=== PATIENT | male | born 1960 | race Caucasian/White ===

== ENCOUNTER 2018-06-19 00:22 | Inpatient (IN) ==
[2018-06-19] MEDS ORDERED: ASPIRIN 325 MG TABLET PO STA (00:57)
[2018-06-19] MEDS ORDERED: ALUM/MAG/SIMETH/LIDO VISC 1:1 30 ML BOTTLE PO STA (00:57)
[2018-06-19] MEDS ORDERED: NITROGLYCERIN 2% OINT 1 INCH/GM PACK TOP STA (00:57)
[2018-06-19] MEDS ORDERED: MORPHINE 4 MG/1 ML VIAL IV STA (01:40)
[2018-06-19] MEDS ORDERED: ONDANSETRON 4 MG/2 ML VIAL IV STA (01:48)
[2018-06-19 01:55] LABS: Basophils % 0.3 % (0.0-0.8); Eosinophils % 0.1 % (0.00-10.9); Hematocrit 46.1 VOL% (42.0-52.0); Hemoglobin 14.7 GM/DL (14.0-18.0); Immature Granulocytes % 0.4 %; Immature Granulocytes Absolute 0.05 #; Lymphocytes # 0.7 10*3/uL (1.4-4.0); Lymphocytes % 5.6 % (21.2-54.2); Mean Corpuscular HGB Conc 31.9 GM/DL (32-36); Mean Corpuscular Hemoglobin 28 PG (27-34); Mean Corpuscular Volume 88.5 FL (87-102); Mean Platelet Volume 9.7 FL (9.6-12.0); Monocytes # 0.5 10*3/uL (0.11-0.8); Neutrophils # 11.7 10*3/uL (1.4-7.4); Neutrophils % 89.6 % (38.7-73.9); Platelet Count 260 T/CUMM (130-400); Red Blood Count 5.21 MC/CUMM (3.8-5.5); Red Cell Distribution Width 12.7 % (9.3-17.3)
[2018-06-19] MEDS ORDERED: HYDROmorphone 2 MG/1 ML VIAL IM STA (01:58)
[2018-06-19] MEDS ORDERED: PROMETHAZINE 25 MG/1 ML VIAL IM STA (01:59)
[2018-06-19 02:31] LABS: Albumin 4.1 G/DL (3.4-5.0); Bilirubin,Total 0.6 MG/DL (0.2-1.0); Calcium 9.1 MG/DL (8.5-10.1); Osmolality,Calculated 286.8 MOS/KG (273-304); Potassium 4.1 MMOL/L (3.5-5.1); Total Protein 8.5 G/DL (6.4-8.3)
[2018-06-19] MEDS ORDERED: KETOROLAC 15 MG/1 ML VIAL IV PRN (04:15)
[2018-06-19] MEDS ORDERED: ONDANSETRON 4 MG/2 ML VIAL IV PRN ×2 (04:15→12:16)
[2018-06-19] MEDS ORDERED: HYDROmorphone 2 MG/1 ML VIAL IV STA (04:42)
[2018-06-19] MEDS: DEXTROSE 5% LACTATED RINGERS 1,000 ML IV SCH ×3 (04:53→20:52)
[2018-06-19] MEDS ORDERED: HYDROmorphone 2 MG/1 ML VIAL IV PRN ×2 (12:15)
[2018-06-19] MEDS ORDERED: cefOXitin 2,000 MG in SYRINGE 1 EACH IV ONE ×2 (12:15→13:00)
[2018-06-19] MEDS ORDERED: GLUCAGON 1 MG VIAL IM PRN (12:17)
[2018-06-19] MEDS ORDERED: DEXTROSE 50% 25 GM/50 ML SYRINGE IV PRN (12:17)
[2018-06-19] MEDS ORDERED: LIDOCAINE 1%/EPI INJ 20 ML VIAL ONE (12:33)
[2018-06-19] MEDS: PANTOPRAZOLE 40 MG VIAL IV SCH (12:43)
[2018-06-19] MEDS ORDERED: INSULIN LISPRO 100 UNIT/ML ONE (12:57)
[2018-06-19] MEDS: INSULIN LISPRO 100 UNIT/ML SUBCUT SCH ×2 (12:58→17:41)
[2018-06-19] MEDS ORDERED: PROPOFOL 200 MG/20 ML VIAL IV ONE (14:26)
[2018-06-19] MEDS ORDERED: ONDANSETRON 4 MG/2 ML VIAL ONE (14:27)
[2018-06-19] MEDS ORDERED: KETOROLAC 30 MG/1 ML VIAL ONE (14:27)
[2018-06-19] MEDS ORDERED: GLYCOPYRROLATE 0.4 MG/2 ML VIAL ONE (14:27)
[2018-06-19] MEDS ORDERED: NEOSTIGMINE 10 MG/10 ML VIAL ONE (14:27)
[2018-06-19] MEDS ORDERED: ROCURONIUM 100 MG/10 ML VIAL IV ONE (14:27)
[2018-06-19] MEDS ORDERED: SEVOFLURANE 1 UNIT/15 MINUTE INH ONE (14:27)
[2018-06-19] MEDS ORDERED: fentaNYL 100 MCG/2 ML VIAL ONE (14:27)
[2018-06-19] MEDS ORDERED: KETOROLAC 30 MG/1 ML VIAL IV ONE (19:35)
[2018-06-19] MEDS: ACETAMINOPHEN 325 MG TABLET PO PRN (19:48)
[2018-06-20] MEDS: ACETAMINOPHEN 325 MG TABLET PO PRN ×2 (03:24→10:06)
[2018-06-20] MEDS: DEXTROSE 5% LACTATED RINGERS 1,000 ML IV SCH (04:55)
[2018-06-20 05:29] LABS: Basophils % 0.2 % (0.0-0.8); Hematocrit 39.4 VOL% (42.0-52.0); Hemoglobin 12.6 GM/DL (14.0-18.0); Immature Granulocytes % 0.5 %; Immature Granulocytes Absolute 0.06 #; Lymphocytes # 0.7 10*3/uL (1.4-4.0); Lymphocytes % 5.7 % (21.2-54.2); Mean Corpuscular Hemoglobin 29 PG (27-34); Mean Corpuscular Volume 89.1 FL (87-102); Mean Platelet Volume 10.8 FL (9.6-12.0); Monocytes # 0.8 10*3/uL (0.11-0.8); Monocytes % 5.8 % (1.7-12.7); Neutrophils # 11.4 10*3/uL (1.4-7.4); Neutrophils % 87.8 % (38.7-73.9); Platelet Count 206 T/CUMM (130-400); Red Blood Count 4.42 MC/CUMM (3.8-5.5); Red Cell Distribution Width 13.2 % (9.3-17.3); White Blood Count 12.9 T/CUMM (4-12)
[2018-06-20 05:50] LABS: Band Neutrophils 11 % (0-10); Hypochromasia 1+; Lymphocytes 5 % (20-55); Segmented Neutrophils 79 % (50-85); Total Cells Counted 100
[2018-06-20 05:51] LABS: Microcytosis 1+; Platelet Estimate Normal
[2018-06-20 05:55] LABS: Albumin 2.6 G/DL (3.4-5.0); Bilirubin,Total 1.7 MG/DL (0.2-1.0); Osmolality,Calculated 293.8 MOS/KG (273-304); Potassium 3.8 MMOL/L (3.5-5.1); Total Protein 6.3 G/DL (6.4-8.3)
[2018-06-20] MEDS ORDERED: MAGNESIUM SULF RIDER 4 GM in PREMIX 1 EACH IV PRN (08:38)
[2018-06-20] MEDS ORDERED: MAGNESIUM SULF RIDER 2 GM in PREMIX 1 EACH IV PRN (08:38)
[2018-06-20] MEDS: INSULIN LISPRO 100 UNIT/ML SUBCUT SCH ×7 (08:48→22:55)
[2018-06-20] MEDS: PANTOPRAZOLE 40 MG VIAL IV SCH (09:57)
[2018-06-20] MEDS: metFORMIN 500 MG TABLET PO SCH (09:57)
[2018-06-20] MEDS ORDERED: DEXTROSE 50% 25 GM/50 ML VIAL IV PRN (15:30)
[2018-06-20] MEDS ORDERED: GLUCAGON 1 MG VIAL IM PRN (15:30)
[2018-06-21] MEDS: INSULIN LISPRO 100 UNIT/ML SUBCUT SCH ×6 (02:50→21:04)
[2018-06-21 05:56] LABS: Albumin 2.1 G/DL (3.4-5.0); Bilirubin,Total 1.2 MG/DL (0.2-1.0); Calcium 8.3 MG/DL (8.5-10.1); Potassium 3.3 MMOL/L (3.5-5.1); Total Protein 6.7 G/DL (6.4-8.3)
[2018-06-21] MEDS: metFORMIN 500 MG TABLET PO SCH (08:27)
[2018-06-21] MEDS: PANTOPRAZOLE 40 MG VIAL IV SCH (08:27)
[2018-06-21] MEDS ORDERED: LACTATED RINGERS 500 ML IV ONE (13:06)
[2018-06-21] MEDS ORDERED: POTASSIUM CHLORIDE 20 MEQ TABLET PO PRN (13:09)
[2018-06-21] MEDS: PIPERACILLIN/TAZOBACTAM 3,375 MG in SODIUM CHLORIDE 0.9% 100 ML IV SCH ×2 (13:50→21:04)
[2018-06-21] MEDS: LACTATED RINGERS 1,000 ML IV SCH (16:50)
[2018-06-21 17:34] LABS: Troponin I < 0.015 NG/ML (0.00-0.045)
[2018-06-22] MEDS: INSULIN LISPRO 100 UNIT/ML SUBCUT SCH ×4 (02:53→16:00)
[2018-06-22] MEDS: LACTATED RINGERS 1,000 ML IV SCH ×2 (02:53→11:12)
[2018-06-22 04:22] LABS: Basophils % 0.3 % (0.0-0.8); Eosinophils # 0.2 10*3/uL (0.0-0.87); Eosinophils % 1.9 % (0.00-10.9); Hematocrit 38.3 VOL% (42.0-52.0); Hemoglobin 11.9 GM/DL (14.0-18.0); Immature Granulocytes % 0.8 %; Immature Granulocytes Absolute 0.09 #; Lymphocytes # 0.9 10*3/uL (1.4-4.0); Lymphocytes % 8.4 % (21.2-54.2); Mean Corpuscular HGB Conc 31.1 GM/DL (32-36); Mean Corpuscular Hemoglobin 28 PG (27-34); Mean Corpuscular Volume 90.3 FL (87-102); Mean Platelet Volume 9.9 FL (9.6-12.0); Monocytes # 0.9 10*3/uL (0.11-0.8); Monocytes % 8.5 % (1.7-12.7); Neutrophils # 8.7 10*3/uL (1.4-7.4); Neutrophils % 80.1 % (38.7-73.9); Platelet Count 219 T/CUMM (130-400); Red Blood Count 4.24 MC/CUMM (3.8-5.5); Red Cell Distribution Width 13.1 % (9.3-17.3); White Blood Count 10.9 T/CUMM (4-12)
[2018-06-22 04:41] LABS: Albumin 1.9 G/DL (3.4-5.0); Bilirubin,Total 1.5 MG/DL (0.2-1.0); Calcium 8.2 MG/DL (8.5-10.1); Osmolality,Calculated 278.8 MOS/KG (273-304); Potassium 3.6 MMOL/L (3.5-5.1); Total Protein 6.4 G/DL (6.4-8.3)
[2018-06-22] MEDS: PIPERACILLIN/TAZOBACTAM 3,375 MG in SODIUM CHLORIDE 0.9% 100 ML IV SCH ×2 (05:05→16:00)
[2018-06-22] MEDS: PANTOPRAZOLE 40 MG VIAL IV SCH (08:01)
[2018-06-22] MEDS: metFORMIN 500 MG TABLET PO SCH (08:01)
[2018-06-22] MEDS: ACETAMINOPHEN 325 MG TABLET PO PRN (08:08)
[2018-06-22 08:10] LABS: Thyroid Stimulating Hormone 1.88 uIU/ml (0.358-3.74)
[2018-06-22 11:19] VITALS: BP 144/80
[2018-06-22] MEDS ORDERED: CARVEDILOL 3.125 MG TABLET PO SCH (13:00)
== END 2018-06-22 16:25 | disposition home or self-care (01) | DRG 419 ==
LOC: N.ED 00:22 → N.3E 00:22
PROVIDERS: ADMIT Surgery; ATTEND Surgery
PROC: LAPCHOL (2018-06-19 13:12)

== ENCOUNTER 2018-07-23 17:36 | Inpatient (IN) ==
[2018-07-23] MEDS ORDERED: ONDANSETRON 4 MG/2 ML VIAL IV ONE (19:24)
[2018-07-23] MEDS ORDERED: SODIUM CHLORIDE 0.9% 1,000 ML IV STA ×2 (19:24→19:54)
[2018-07-23 19:52] LABS: Basophils # 0.1 10*3/uL (0.0-0.2); Basophils % 0.5 % (0.0-0.8); Eosinophils # 0.1 10*3/uL (0.0-0.87); Eosinophils % 0.9 % (0.00-10.9); Hematocrit 42.4 VOL% (42.0-52.0); Hemoglobin 13.5 GM/DL (14.0-18.0); Immature Granulocytes % 0.3 %; Immature Granulocytes Absolute 0.03 #; Lymphocytes # 2.3 10*3/uL (1.4-4.0); Lymphocytes % 23.1 % (21.2-54.2); Mean Corpuscular HGB Conc 31.8 GM/DL (32-36); Mean Corpuscular Volume 84.8 FL (87-102); Mean Platelet Volume 9.6 FL (9.6-12.0); Monocytes % 8.5 % (1.7-12.7); Neutrophils % 66.7 % (38.7-73.9); Platelet Count 432 T/CUMM (130-400); Red Cell Distribution Width 12.9 % (9.3-17.3); White Blood Count 10.1 T/CUMM (4-12)
[2018-07-23] MEDS ORDERED: INSULIN REGULAR 100 UNIT/ML IV STA (19:54)
[2018-07-23 20:11] LABS: Troponin I < 0.015 NG/ML (0.00-0.045)
[2018-07-23 20:14] LABS: Albumin 2.8 G/DL (3.4-5.0); Bilirubin,Total 0.6 MG/DL (0.2-1.0); Calcium 9.6 MG/DL (8.5-10.1); Osmolality,Calculated 278.5 MOS/KG (273-304); Total Protein 8.8 G/DL (6.4-8.3)
[2018-07-23] MEDS ORDERED: PROMETHAZINE INJ 25 MG in SODIUM CHLORIDE 0.9% 50 ML IV STA (20:23)
[2018-07-23] MEDS ORDERED: PROMETHAZINE 25 MG/1 ML VIAL ONE (20:25)
[2018-07-23] MEDS ORDERED: PIPERACILLIN/TAZOBACTAM 3,375 MG in SODIUM CHLORIDE 0.9% 100 ML IV STA (21:23)
[2018-07-23] MEDS ORDERED: ONDANSETRON 4 MG/2 ML VIAL IV PRN (21:29)
[2018-07-23] MEDS ORDERED: ACETAMINOPHEN 325 MG TABLET PO PRN (21:29)
[2018-07-23] MEDS ORDERED: BISACODYL 5 MG TABLET PO PRN (21:29)
[2018-07-23] MEDS ORDERED: GLUCAGON 1 MG VIAL IM PRN (21:31)
[2018-07-23] MEDS ORDERED: DEXTROSE 50% 25 GM/50 ML SYRINGE IV PRN (21:31)
[2018-07-23 22:38] LABS: Apearance,Urine CLEAR (Clear); Bilirubin,Urine Negative (Negative); Blood, Urine Negative (Negative); Glucose,Urine (UA) >=500 mg/dL (Negative); Ketones,Urine Negative (Negative); Mucus,Urine Occasional /LPF (Occasional); Nitrite,Urine Negative (Negative); Protein,Urine Negative; RBC,Urine 1 /HPF (0-4); Squamous Epithelial Cell,Urine Occasional /HPF (0-10); Urine Color Yellow (Yellow); Urine Specific Gravity > 1.060 (1.001-1.035); Urine Urobilinogen < 2.0 EU/DL (0.2-1.0)
[2018-07-24] MEDS ORDERED: PNEUMOCOCCAL VACCINE (23 VALENT) 0.5 ML VIAL IM ONE (00:05)
[2018-07-24] MEDS: DEXTROSE 5% LACTATED RINGERS 1,000 ML IV SCH ×3 (00:10→20:45)
[2018-07-24] MEDS: PIPERACILLIN/TAZOBACTAM 3,375 MG in SODIUM CHLORIDE 0.9% 100 ML IV SCH ×4 (00:40→23:30)
[2018-07-24] MEDS: INSULIN REGULAR 100 UNIT/ML SUBCUT SCH ×5 (00:56→23:55)
[2018-07-24 06:08] LABS: Basophils # 0.1 10*3/uL (0.0-0.2); Basophils % 0.7 % (0.0-0.8); Eosinophils # 0.2 10*3/uL (0.0-0.87); Eosinophils % 2.3 % (0.00-10.9); Immature Granulocytes % 0.5 %; Immature Granulocytes Absolute 0.04 #; Lymphocytes # 2.1 10*3/uL (1.4-4.0); Lymphocytes % 24.2 % (21.2-54.2); Mean Corpuscular HGB Conc 31.1 GM/DL (32-36); Mean Corpuscular Volume 85.7 FL (87-102); Mean Platelet Volume 9.3 FL (9.6-12.0); Monocytes % 8.8 % (1.7-12.7); Neutrophils % 63.5 % (38.7-73.9); Platelet Count 380 T/CUMM (130-400); Red Cell Distribution Width 12.8 % (9.3-17.3); White Blood Count 8.7 T/CUMM (4-12)
[2018-07-24 06:14] LABS: Albumin 2.2 G/DL (3.4-5.0); Bilirubin,Total 0.6 MG/DL (0.2-1.0); Calcium 8.5 MG/DL (8.5-10.1); Osmolality,Calculated 276.8 MOS/KG (273-304); Total Protein 6.7 G/DL (6.4-8.3)
[2018-07-24 06:24] LABS: Hemoglobin 11.2 GM/DL (14.0-18.0)
[2018-07-24] MEDS: PANTOPRAZOLE 40 MG VIAL IV SCH (09:12)
[2018-07-24] MEDS ORDERED: DIAZEPAM 5 MG TABLET PO ONE (09:57)
[2018-07-24] MEDS ORDERED: MIDAZOLAM 2 MG/2 ML VIAL IV ONE (09:57)
[2018-07-24] MEDS ORDERED: fentaNYL 100 MCG/2 ML VIAL IV ONE (09:57)
[2018-07-24] MEDS ORDERED: fentaNYL 100 MCG/2 ML VIAL ONE (14:58)
[2018-07-24] MEDS ORDERED: MIDAZOLAM 2 MG/2 ML VIAL ONE (14:59)
[2018-07-24] MEDS: ZINC OXIDE PASTE 113 GM TUBE TOP SCH ×2 (19:29→21:17)
[2018-07-24] MEDS: CARVEDILOL 3.125 MG TABLET PO SCH (20:41)
[2018-07-25] MEDS: INSULIN REGULAR 100 UNIT/ML SUBCUT SCH ×3 (05:55→19:00)
[2018-07-25] MEDS: PIPERACILLIN/TAZOBACTAM 3,375 MG in SODIUM CHLORIDE 0.9% 100 ML IV SCH ×2 (08:17→16:30)
[2018-07-25] MEDS: COLLAGENASE OINT 30 GM TUBE TOP SCH (08:18)
[2018-07-25] MEDS: PANTOPRAZOLE 40 MG VIAL IV SCH (08:18)
[2018-07-25] MEDS: CARVEDILOL 3.125 MG TABLET PO SCH ×2 (08:19→20:57)
[2018-07-25] MEDS: DEXTROSE 5% LACTATED RINGERS 1,000 ML IV SCH ×2 (14:50→15:22)
[2018-07-25] MEDS: ZINC OXIDE PASTE 113 GM TUBE TOP SCH ×2 (19:05→20:57)
[2018-07-26] MEDS: INSULIN REGULAR 100 UNIT/ML SUBCUT SCH ×4 (00:36→18:58)
[2018-07-26] MEDS: PIPERACILLIN/TAZOBACTAM 3,375 MG in SODIUM CHLORIDE 0.9% 100 ML IV SCH ×3 (02:03→17:35)
[2018-07-26 04:49] LABS: Basophils % 0.4 % (0.0-0.8); Eosinophils # 0.2 10*3/uL (0.0-0.87); Eosinophils % 1.7 % (0.00-10.9); Hematocrit 37.6 VOL% (42.0-52.0); Hemoglobin 11.7 GM/DL (14.0-18.0); Immature Granulocytes % 0.9 %; Immature Granulocytes Absolute 0.08 #; Lymphocytes # 1.9 10*3/uL (1.4-4.0); Lymphocytes % 21.1 % (21.2-54.2); Mean Corpuscular HGB Conc 31.1 GM/DL (32-36); Mean Corpuscular Volume 85.5 FL (87-102); Mean Platelet Volume 9.3 FL (9.6-12.0); Monocytes % 10.1 % (1.7-12.7); Neutrophils % 65.8 % (38.7-73.9); Platelet Count 372 T/CUMM (130-400); Red Cell Distribution Width 12.8 % (9.3-17.3); White Blood Count 9.2 T/CUMM (4-12)
[2018-07-26 05:09] LABS: Albumin 2.1 G/DL (3.4-5.0); Bilirubin,Total 0.8 MG/DL (0.2-1.0); Calcium 8.6 MG/DL (8.5-10.1); Total Protein 6.8 G/DL (6.4-8.3)
[2018-07-26] MEDS: DEXTROSE 5% LACTATED RINGERS 1,000 ML IV SCH ×2 (09:29→18:37)
[2018-07-26] MEDS: CARVEDILOL 3.125 MG TABLET PO SCH ×2 (09:31→21:49)
[2018-07-26] MEDS: PANTOPRAZOLE 40 MG VIAL IV SCH (09:31)
[2018-07-26] MEDS ORDERED: MAGNESIUM SULF RIDER 4 GM in PREMIX 1 EACH IV PRN (10:26)
[2018-07-26] MEDS ORDERED: MAGNESIUM SULF RIDER 2 GM in PREMIX 1 EACH IV PRN (10:26)
[2018-07-26] MEDS: ZINC OXIDE PASTE 113 GM TUBE TOP SCH ×2 (10:32→21:52)
[2018-07-26] MEDS: COLLAGENASE OINT 30 GM TUBE TOP SCH (10:33)
[2018-07-27] MEDS: INSULIN REGULAR 100 UNIT/ML SUBCUT SCH ×5 (00:40→23:39)
[2018-07-27] MEDS: PIPERACILLIN/TAZOBACTAM 3,375 MG in SODIUM CHLORIDE 0.9% 100 ML IV SCH ×3 (04:20→18:57)
[2018-07-27] MEDS: PANTOPRAZOLE 40 MG VIAL IV SCH (08:58)
[2018-07-27] MEDS: CARVEDILOL 3.125 MG TABLET PO SCH ×2 (09:08→20:48)
[2018-07-27] MEDS: COLLAGENASE OINT 30 GM TUBE TOP SCH (10:10)
[2018-07-27] MEDS: ZINC OXIDE PASTE 113 GM TUBE TOP SCH ×2 (10:10→20:48)
[2018-07-27] MEDS: oxyCODONE/ACETAMINOPHEN 5-325 MG TABLET PO PRN (23:03)
[2018-07-28] MEDS: PIPERACILLIN/TAZOBACTAM 3,375 MG in SODIUM CHLORIDE 0.9% 100 ML IV SCH ×3 (02:23→19:10)
[2018-07-28] MEDS: INSULIN REGULAR 100 UNIT/ML SUBCUT SCH ×3 (06:04→17:52)
[2018-07-28] MEDS ORDERED: MAGNESIUM HYDROXIDE SUSP 30 ML UDCUP PO ONE (07:43)
[2018-07-28] MEDS: PANTOPRAZOLE 40 MG VIAL IV SCH (08:24)
[2018-07-28] MEDS: CARVEDILOL 3.125 MG TABLET PO SCH ×2 (08:25→21:40)
[2018-07-28 09:03] LABS: Basophils # 0.1 10*3/uL (0.0-0.2); Basophils % 0.5 % (0.0-0.8); Eosinophils # 0.3 10*3/uL (0.0-0.87); Eosinophils % 2.1 % (0.00-10.9); Hematocrit 39.6 VOL% (42.0-52.0); Hemoglobin 12.4 GM/DL (14.0-18.0); Immature Granulocytes % 0.4 %; Immature Granulocytes Absolute 0.05 #; Lymphocytes # 2.1 10*3/uL (1.4-4.0); Mean Corpuscular HGB Conc 31.3 GM/DL (32-36); Mean Corpuscular Volume 85.5 FL (87-102); Mean Platelet Volume 9.2 FL (9.6-12.0); Monocytes % 7.5 % (1.7-12.7); Neutrophils % 73.5 % (38.7-73.9); Platelet Count 433 T/CUMM (130-400); Red Blood Count 4.63 MC/CUMM (3.8-5.5); White Blood Count 12.8 T/CUMM (4-12)
[2018-07-28 09:12] LABS: Osmolality,Calculated 270.2 MOS/KG (273-304)
[2018-07-28] MEDS: oxyCODONE/ACETAMINOPHEN 5-325 MG TABLET PO PRN (10:58)
[2018-07-28] MEDS: CLINDAMYCIN INJ 600 MG in PREMIX 1 EACH IV SCH ×2 (17:45→23:28)
[2018-07-28] MEDS: COLLAGENASE OINT 30 GM TUBE TOP SCH (17:52)
[2018-07-28] MEDS: ASPIRIN EC 81 MG TABLET PO SCH (17:52)
[2018-07-28] MEDS: ZINC OXIDE PASTE 113 GM TUBE TOP SCH ×2 (17:52→21:40)
[2018-07-29] MEDS: INSULIN REGULAR 100 UNIT/ML SUBCUT SCH ×2 (01:03→06:26)
[2018-07-29] MEDS: PIPERACILLIN/TAZOBACTAM 3,375 MG in SODIUM CHLORIDE 0.9% 100 ML IV SCH ×2 (03:29→11:00)
[2018-07-29 05:08] LABS: Basophils # 0.1 10*3/uL (0.0-0.2); Basophils % 0.5 % (0.0-0.8); Eosinophils # 0.2 10*3/uL (0.0-0.87); Eosinophils % 1.6 % (0.00-10.9); Hemoglobin 11.5 GM/DL (14.0-18.0); Immature Granulocytes % 0.6 %; Immature Granulocytes Absolute 0.07 #; Lymphocytes # 2.4 10*3/uL (1.4-4.0); Lymphocytes % 21.4 % (21.2-54.2); Mean Corpuscular HGB Conc 31.9 GM/DL (32-36); Mean Corpuscular Volume 85.1 FL (87-102); Mean Platelet Volume 9.5 FL (9.6-12.0); Neutrophils % 64.9 % (38.7-73.9); Platelet Count 435 T/CUMM (130-400); Red Blood Count 4.23 MC/CUMM (3.8-5.5); Red Cell Distribution Width 13.2 % (9.3-17.3); White Blood Count 11.1 T/CUMM (4-12)
[2018-07-29 05:20] LABS: Calcium 8.7 MG/DL (8.5-10.1); Osmolality,Calculated 274.1 MOS/KG (273-304)
[2018-07-29 08:40] VITALS: BP 98/63
[2018-07-29] MEDS: ASPIRIN EC 81 MG TABLET PO SCH (08:50)
[2018-07-29] MEDS: CARVEDILOL 3.125 MG TABLET PO SCH (08:51)
[2018-07-29] MEDS: CLINDAMYCIN INJ 600 MG in PREMIX 1 EACH IV SCH (08:51)
[2018-07-29] MEDS: PANTOPRAZOLE 40 MG VIAL IV SCH (09:01)
[2018-07-29] MEDS: COLLAGENASE OINT 30 GM TUBE TOP SCH (09:05)
[2018-07-29] MEDS: ZINC OXIDE PASTE 113 GM TUBE TOP SCH (09:13)
== END 2018-07-29 11:10 | disposition home health service (06) | DRG 862 ==
LOC: N.ED 17:36 → N.EDINP 21:29 → N.3E 22:34
PROVIDERS: ADMIT Surgery; ATTEND Surgery